=== PATIENT | male | born 1985 | race Caucasian/White ===

== ENCOUNTER 2016-08-09 15:54 | Emergency (ER) | payer SELFPAY ==
[~2016-08-09] VITALS: Ht 165.1 cm; Wt 90.7 kg
[~2016-08-09 15:54] MED LIST: APAP/HYDROCODON1 T10 PO; BACTRIM DS 8001 TA1 PO; BACTROBAN2% TP; KEFLEX 500MG.500 MG PO; LORATADINE10 MG OR; LORTAB 5/3251 TAB PO; MINOCYCLINE 10100 MG PO; NICODERM C21 MG/24 H TD; NOMEDS XX; NORCO 325 MG-51 TAB PO; SEPTRA DS 800 M1 TAB PO
--- NOTE | 2016-08-09 16:44 | Urgent Treatment Center Report ---
History of Present Issue Date/Time Seen by Provider 08/09/16 8889 Visit Reason Pt arrived:Walked Presenting Problem:PT STATES SCRATCHY, SORE THROAT AND COUGH FOR PAST TWO TO THREE DAYS. Location if Accident: Onset of symptoms date/time:/ or onset unknown for:MEDICAL HX UNKNOWN Have you (or family members/close friends) recently traveled outside the [place]? N If Yes, where/when: Have you had exposure to infectious disease within the past month? TB? Other? Specify: Patient states that he has not felt good for the last 2-3 days states that he just kept feeling worse. States that his throat is sore, nose is stopped up and had cough due to drainage down the back of his throat. States that he thought he would feel better but instead he keeps feeling worse ALLERGIES Coded Allergies: morphine (01/03/16) Home Medications Reported Medications No Known Home Medications History Medical History General CAD? No Angina: No [place]: No Hypertension? No Hyperlipidemia? No CHF? No DVT? No PE? No COPD? No Asthma? No Anemia? No GERD? No Gastric ulcers? No GI Bleed? No Hernia? No Thyroid Problems? No Hypothyroidism? No CVA? No Seizures? No Diabetes? No Insulin Dependent: No Insulin Pump: No Home FSBS? No Renal Insuffiency? No UTI? No Stones? No BPH? No GB Disease: No Nephritic Syndrome? No Asplenia? No Hepatitis? Yes Sickle Cell Disease? No Arthritis? No Migraines? Yes Cataracts? No Glaucoma? No MRSA? Yes HIV? No TB? No Anxiety? No Depression? No Cancer? No More? No Immunization HX DT/Tetanus 1-4 Years Ago Flu 06/29/2015 Pneumonia Refuses Surgical Hx Previous Surgery?Y Appendectomy Family History Family HX Diabetes Yes CAD Yes Hypertension Yes Hyperlipidemia No Cancer Yes TB No Social History Smoking Hx Smoker: Current Every Day Smoker Tobacco: Yes Type Cigarettes Packs/day < 1 Pack Alcohol Alcohol: No Review of Systems All Other Systems Reviewed and Negative ENT nose discharge, nose congestion, throat pain. Respiratory cough Physical Exam Vital Signs Vital Signs Date Time Temp Pulse Resp B/P Pulse O2 O2 Flow FiO2 Ox Delivery Rate 08/09 1612 98.4 68 20 169/97 97 General Appearance Patient appears ill, nose red, cheeks flush Ear, Nose, Throat sinus pain/drainage, nasal congestion, throat red, irritated with drainage noted, greenish yellow drainage from nose Respiratory Status Yes: trachea midline, chest symmetrical, non tender chest. No: respiratory distress. 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 No Results/Orders Laboratory Tests 08/09/16 1614: Group A Strep Screen NOT DETECTED Orders Procedure Date/time Status [facility] STREP SCREEN 08/09 1614 Complete Departure Departure Time of Disposition 165 Disposition DC Home or Self Care(routine) Clinical Impression Primary Impression: Upper respiratory infection Qualifiers: URI type: unspecified URI Qualified Code: J06.9 - Acute upper respiratory infection, unspecified Condition STABLE Patient Instructions Cough, DI for Cough -- Adult, DI for Sinusitis, Sinus Headache, Sore Throat Additional Instructions Drink plenty of fluids Over the counter Motrin or Tylenol as needed for fever or pain Take medication as prescribed Return if needed Follow up with family doctor if worsening or symptoms in 2-3 days Discharge Counseling Counseled pt/family regarding diagnosis, test results, medications/RX, home care, follow up needs Prescriptions Current Visit Scripts Azithromycin (Zithromycin (Z-LAN) 250MG Tab) 250 MG PO DAILY #6 TAB TAKE TWO (2) TABLETS ON DAY 1, THEN ONE (1) TABLET DAY #2 THRU #5 Methylprednisolone (Medrol Dose Lan) 4 MG PO UD #1 LAN TAKE DIRECTED ON PACKAGING at 165
--- NOTE | 2016-08-09 16:44 | Urgent Treatment Center Report ---
History of Present Issue Date/Time Seen by Provider 08/09/16 4609 Visit Reason Pt arrived:Walked Presenting Problem:PT STATES SCRATCHY, SORE THROAT AND COUGH FOR PAST TWO TO THREE DAYS. Location if Accident: Onset of symptoms date/time:/ or onset unknown for:MEDICAL HX UNKNOWN Have you (or family members/close friends) recently traveled outside the [place]? N If Yes, where/when: Have you had exposure to infectious disease within the past month? TB? Other? Specify: Patient states that he has not felt good for the last 2-3 days states that he just kept feeling worse. States that his throat is sore, nose is stopped up and had cough due to drainage down the back of his throat. States that he thought he would feel better but instead he keeps feeling worse ALLERGIES Coded Allergies: morphine (01/03/16) Home Medications Reported Medications No Known Home Medications History Medical History General CAD? No Angina: No [place]: No Hypertension? No Hyperlipidemia? No CHF? No DVT? No PE? No COPD? No Asthma? No Anemia? No GERD? No Gastric ulcers? No GI Bleed? No Hernia? No Thyroid Problems? No Hypothyroidism? No CVA? No Seizures? No Diabetes? No Insulin Dependent: No Insulin Pump: No Home FSBS? No Renal Insuffiency? No UTI? No Stones? No BPH? No GB Disease: No Nephritic Syndrome? No Asplenia? No Hepatitis? Yes Sickle Cell Disease? No Arthritis? No Migraines? Yes Cataracts? No Glaucoma? No MRSA? Yes HIV? No TB? No Anxiety? No Depression? No Cancer? No More? No Immunization HX DT/Tetanus 1-4 Years Ago Flu 06/29/2015 Pneumonia Refuses Surgical Hx Previous Surgery?Y Appendectomy Family History Family HX Diabetes Yes CAD Yes Hypertension Yes Hyperlipidemia No Cancer Yes TB No Social History Smoking Hx Smoker: Current Every Day Smoker Tobacco: Yes Type Cigarettes Packs/day < 1 Pack Alcohol Alcohol: No Review of Systems All Other Systems Reviewed and Negative ENT nose discharge, nose congestion, throat pain. Respiratory cough Physical Exam Vital Signs Vital Signs Date Time Temp Pulse Resp B/P Pulse O2 O2 Flow FiO2 Ox Delivery Rate 08/09 1612 98.4 68 20 169/97 97 General Appearance Patient appears ill, nose red, cheeks flush Ear, Nose, Throat sinus pain/drainage, nasal congestion, throat red, irritated with drainage noted, greenish yellow drainage from nose Respiratory Status Yes: trachea midline, chest symmetrical, non tender chest. No: respiratory distress. 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 No Results/Orders Laboratory Tests 08/09/16 1614: Group A Strep Screen NOT DETECTED Orders Procedure Date/time Status [facility] STREP SCREEN 08/09 1614 Complete Departure Departure Time of Disposition 165 Disposition DC Home or Self Care(routine) Clinical Impression Primary Impression: Upper respiratory infection Qualifiers: URI type: unspecified URI Qualified Code: J06.9 - Acute upper respiratory infection, unspecified Condition STABLE Patient Instructions Cough, DI for Cough -- Adult, DI for Sinusitis, Sinus Headache, Sore Throat Additional Instructions Drink plenty of fluids Over the counter Motrin or Tylenol as needed for fever or pain Take medication as prescribed Return if needed Follow up with family doctor if worsening or symptoms in 2-3 days Discharge Counseling Counseled pt/family regarding diagnosis, test results, medications/RX, home care, follow up needs Prescriptions Current Visit Scripts Azithromycin (Zithromycin (Z-LAN) 250MG Tab) 250 MG PO DAILY #6 TAB TAKE TWO (2) TABLETS ON DAY 1, THEN ONE (1) TABLET DAY #2 THRU #5 Methylprednisolone (Medrol Dose Lan) 4 MG PO UD #1 LAN TAKE DIRECTED ON PACKAGING at 1651
[2016-08-09] MEDS ORDERED: ZITHROMAX Z PA250 MG PO (16:55)
[2016-08-09] MEDS ORDERED: MEDROL 4MG. DOSE4 MG PO (16:55)
[2016-08-09 17:07] VITALS: BP 169/97
== END 2016-08-09 17:08 | disposition home or self-care (01) ==
LOC: UTC 15:54
DX: J06.9 Acute upper respiratory infection, unspecified (principal)